=== PATIENT | female | born 1995 | race Caucasian/White ===

== ENCOUNTER 2016-09-28 23:52 | Emergency (ER) | payer OTHER | END 2016-09-29 01:39 | disposition home or self-care (01) | LOC: ED 23:52 | DX: M25.532 Pain in left wrist (principal); X50.0XXA Overexertion from strenuous movement or load, initial encounter; Y93.F9 Activity, other caregiving; Y92.9 Unspecified place or not applicable; Y99.0 Civilian activity done for income or pay ==